=== PATIENT | female | born 2000 | race African-American/Black ===

== ENCOUNTER 2024-02-28 08:29 | Outpatient (REF) | payer OTHER, SELFPAY ==
--- NOTE | ~2024-02-28 | US_ITS ---
EXAMINATION: US PELVIS CLINICAL INFORMATION: Pelvic pain. LMP 2 weeks ago. COMPARISON: None available. TECHNIQUE: Ultrasound of the pelvis is performed using both transabdominal and transvaginal transducers along with Doppler. Transvaginal imaging is performed due to inadequate visualization transabdominally. FINDINGS: Uterus: The uterus is anteverted and measures 7.2 x 3.1 x 5.4 cm. The double wall endometrial thickness is 0.6 cm. The uterus is smooth in contour and has normal myometrial echogenicity. No visible fibroid. Adnexa: Both ovaries are visualized. There is normal color flow to the adnexa. There is no ovarian torsion. There is no pelvic ascites or fluid collection. Right ovary measures 2.9 x 2.3 x 2.9 cm. Volume of 10 mL. Left ovary measures 3 x 1.7 x 2.4 cm. Volume of 6.2 mL. US/US pelvic and transvaginal IMPRESSION: Unremarkable examination. Electronically signed by: Elliot Arora MD 02/28/2024 03:20 PM EDT
== END 2024-02-28 08:30 | disposition home or self-care (01) ==
LOC: HO.UMASIMG 08:29
PROVIDERS: Visit Provider Pediatrics
DX: R10.2 Pelvic and perineal pain (principal); N76.0 Acute vaginitis
CPT/HCPCS: 76830; 76856